=== PATIENT | male | born 1990 | race Caucasian/White ===

== ENCOUNTER 2018-10-09 15:37 | Emergency (ER) | payer OTHER ==
[~2018-10-09] VITALS: Ht 167.6 cm; Wt 129.0 kg
[2018-10-09 15:41] VITALS: Ht 167.6 cm; Wt 129.0 kg
[2018-10-09] MEDS ORDERED: CEPH-443 PO (18:45)
[2018-10-09 18:57] VITALS: BP 139/80; PULSE 79; RESP 16
--- NOTE | 2018-10-09 20:29 | ERD ---
ER Documentation Chief Complaint Chief Complaint Complains of dizziness x 2 days HPI History of Present Illness: Patient coming in today with complaint of 3 episodes of weakness that started today. Patient does not describe symptoms of dizziness, no room spinning, does not like he is spinning. Patient report reports a sensation of dizziness feeling weak and going to follow over. Patient reports having it with episode at work while standing and talking to a fellow coworker in which he became weak. Patient also reports one episode while driving today. Patient also reports one episode when going from laying down to standing up. Patient denies any other associated symptoms. Denies any diaphoresis palpitations, shortness of breath, chest pain during these episodes. At home pharmacological/nonpharmacological treatment for symptoms: Denies Denies social concerns; Denies recent foreign travel ROS All systems reviewed and are negative except as per history of present illness. Medications Home Meds Active Scripts Cephalexin* (Keflex*) 500 Mg Capsule, 500 MG PO QID for urine infection for 7 Days, CAP Prov:SOCRATES DURAND V SERVICE DISPATCHER 10/09/18 Allergies Allergies: Coded Allergies: No Known Drug Allergy (Verified Allergy, Mild, 06/04/16) PMhx/Soc History of Surgery: No Anesthesia Reaction: No Hx Neurological Disorder: No Hx Respiratory Disorders: No Hx Cardiac Disorders: No Hx Psychiatric Problems: No Hx Miscellaneous Medical Probl: No Hx Alcohol Use: Yes Hx Substance Use: No Hx Tobacco Use: No Smoking Status: Never smoker FmHx Family History: No diabetes Physical Exam Vitals Vital Signs Date Temp Pulse Resp B/P (MAP) Pulse Ox O2 O2 Flow FiO2 Time Delivery Rate 10/09/18 79 16 139/80 99 Room Air 18:57 (99) 10/09/18 98.2 97 20 168/99 97 15:41 (122) Physical Exam Const: No acute distress Head: Atraumatic Eyes: Normal Conjunctiva ENT: Normal External Ears, Nose and Mouth. Neck: Full range of motion. No meningismus. Resp: Clear to auscultation bilaterally Cardio: Regular rate and rhythm, no murmurs Abd: Soft, non tender, non distended. Normal bowel sounds Skin: No petechiae or rashes Back: No midline or flank tenderness Ext: No cyanosis, or edema Neur: Awake and alert Psych: Normal Mood and Affect Result Diagram: 10/09/18 1645 10/09/18 1644 Results 24 hrs Laboratory Tests Test 10/09/18 16:44 10/09/18 16:45 Sodium Level 139 mmol/L Potassium Level 4.1 mmol/L Chloride Level 106 mmol/L Carbon Dioxide Level 24 mmol/L Anion Gap 9 Blood Urea Nitrogen 11 mg/dl Creatinine 0.62 mg/dl Est Glomerular Filtrat Rate mL/min > 60 mL/min Glucose Level 112 mg/dl Calcium Level 9.8 mg/dl Total Bilirubin 0.4 mg/dl Direct Bilirubin 0.00 mg/dl Indirect Bilirubin 0.4 mg/dl Aspartate Amino Transf (AST/SGOT) 44 IU/L Alanine Aminotransferase (ALT/SGPT) 74 IU/L Alkaline Phosphatase 156 IU/L Troponin I < 0.012 ng/ml Total Protein 7.6 g/dl Albumin 3.9 g/dl Globulin 3.70 g/dl Albumin/Globulin Ratio 1.05 White Blood Count 13.7 10^3/ul Red Blood Count 4.98 10^6/ul Hemoglobin 14.6 g/dl Hematocrit 45.5 % Mean Corpuscular Volume 91.4 fl Mean Corpuscular Hemoglobin 29.3 pg Mean Corpuscular Hemoglobin Concent 32.1 g/dl Red Cell Distribution Width 13.2 % Platelet Count 312 10^3/UL Mean Platelet Volume 10.3 fl Immature Granulocytes % 0.800 % Neutrophils % 69.2 % Lymphocytes % 20.2 % Monocytes % 6.9 % Eosinophils % 2.6 % Basophils % 0.3 % Nucleated Red Blood Cells % 0.0 /100WBC Immature Granulocytes # 0.110 10^3/ul Neutrophils # 9.5 10^3/ul Lymphocytes # 2.8 10^3/ul Monocytes # 0.9 10^3/ul Eosinophils # 0.4 10^3/ul Basophils # 0.0 10^3/ul Nucleated Red Blood Cells # 0.0 10^3/ul Urine Color STRAW Urine Clarity CLEAR Urine pH 6.0 Urine Specific Butler 1.006 Urine Ketones NEGATIVE mg/dL Urine Nitrite NEGATIVE mg/dL Urine Bilirubin NEGATIVE mg/dL Urine Urobilinogen NEGATIVE mg/dL Urine Leukocyte Esterase 2+ Hema/ul Urine Microscopic RBC 1 /HPF Urine Microscopic WBC 39 /HPF Urine Hemoglobin NEGATIVE mg/dL Urine Glucose NEGATIVE mg/dL Urine Total Protein NEGATIVE mg/dl Urine Opiates Screen Negative Urine Barbiturates Negative Urine Amphetamines Screen Negative Urine Benzodiazepines Screen Negative Urine Cocaine Screen Negative Urine Cannabinoids Negative Procedures/MDM ED course includes a thorough examination and history. Medications: --- Imaging: Chest x-ray, EKG Labs: CBC, CMP, UA, UDS Low suspicion for life-threatening medical emergency. Low suspicion for neurological emergency, unremarkable. Low suspicion for cardiopulmonary emergency that requires hospitalization or immediate surgical intervention, patient without palpitations or chest pain or shortness of breath. EKG @ 1638: Rate/Rhythm: Normal Sinus Rhythm, ventricular rate 72 QRS, ST, T-waves: No changes consistent w/ acute ischemia Impression: No evidence of ischemia or arrhythmia Otherwise healthy patient presenting with constellation of symptoms likely representing uncomplicated urinary tract infection, as characterized by history, physical exam findings, radiologic findings, lab findings. Patient reports being uncircumcised, but with no complaints of urinary symptoms. Denies any new sexual partners, will order gonorrhea chlamydia to rule out. CBC showing slight leukocytosis at 13.7, no signs of anemia or low fluid volume. CMP without Y abnormality, liver enzymes and alkaline phosphatase mildly elevated. Urinalysis showing increase in white blood cells and positive leukocyte esterase. Urine drug screen negative. No respiratory distress, otherwise relatively well appearing and nontoxic. No episodes of weakness spells during ER visit. Patient reports increased with alcohol use rings every weekend and several times during the week with at least 3+ drinks. Patient education provided for alcohol abuse and mild elevation of alkaline phosphatase and liver enzymes. Patient educated on diagnoses, p rescriptions, follow-up care, return precautions. Strict return precautions given for worsening condition; questions answered discharge. Disposition for discharge with followup in 2 days with PCP/clinic. Blood Pressure Assessment: Patient's blood pressure was elevated (>120/80) but appears stable without evidence of hypertension emergency or urgency. The patient was counseled about the risks of hypertension and urged to pursue outpatient monitoring and therapy within a week with their primary care physician. Departure Diagnosis: Primary Impression: Weakness Additional Impressions: UTI (urinary tract infection) Urinary tract infection type: site unspecified Hematuria presence: without hematuria Qualified Codes: N39.0 - Urinary tract infection, site not specified Elevated serum alkaline phosphatase level Condition: Stable Patient Instructions: Understanding Urinary Tract Infections (UTIs), Generalized Weakness, Weakness, Unk Cause, Alcohol Abuse Referrals: COMMUNITY CLINICS YOU HAVE RECEIVED A MEDICAL SCREENING EXAM AND THE RESULTS INDICATE THAT YOU DO NOT HAVE A CONDITION THAT REQUIRES URGENT TREATMENT IN THE EMERGENCY DEPARTMENT. FURTHER EVALUATION AND TREATMENT OF YOUR CONDITION CAN WAIT UNTIL YOU ARE SEEN IN YOUR DOCTORS OFFICE WITHIN THE NEXT 1-2 DAYS. IT IS YOUR RESPONSIBILITY TO MAKE AN APPOINTMENT FOR FOLOW-UP CARE. IF YOU HAVE A PRIMARY DOCTOR --you should call your primary doctor and schedule an appointment IF YOU DO NOT HAVE A PRIMARY DOCTOR YOU CAN CALL OUR PHYSICIAN REFERRAL HOTLINE AT IF YOU CAN NOT AFFORD TO SEE A PHYSICIAN YOU CAN CHOSE FROM THE FOLLOWING FORMERLY [facility], [facility] CL[facility] [address] [facility] [address] [facility] [address] [facility] [address] [address] [address] [facility] [address] [facility]. [facility]. [address] [facility]. [facility] YOU HAVE RECEIVED A MEDICAL SCREENING EXAM AND THE RESULTS INDICATE THAT YOU DO NOT HAVE A CONDITION THAT REQUIRES URGENT TREATMENT IN THE EMERGENCY DEPARTMENT. FURTHER EVALUATION AND TREATMENT OF YOUR CONDITION CAN WAIT UNTIL YOU ARE SEEN IN YOUR DOCTORS OFFICE WITHIN THE NEXT 1-2 DAYS. IT IS YOUR RESPONSIBILITY TO MAKE AN APPOINTMENT FOR FOLOW-UP CARE. IF YOU HAVE A PRIMARY DOCTOR --you should call your primary doctor and schedule and appointment IF YOU DO NOT HAVE A PRIMARY DOCTOR YOU CAN CALL OUR PHYSICIAN REFERRAL HOTLINE AT . IF YOU CAN NOT AFFORD TO SEE A PHYSICIAN YOU CAN CHOSE FROM THE FOLLOWING [facility] INSTITUTIONS: [facility] [address] [place] [address] [facility] [address] [place] [address] [facility] [address] [place] [address] Additional Instructions: Thank you very much for allowing us to participate in your care. Your health and safety is our top priority at [facility]. It is important to read all discharge instructions and education provided in your discharge packet. Call your primary care doctor TOMORROW for an appointment during the next 2-4 days and bring all the information and medications prescribed. Have prescriptions filled and follow precisely the directions on the label. Cephalexin is antibiotic for urinary tract infection; you may take this m edication for 7 days. No consumption of alcohol while taking antibiotics. If the symptoms get worse and your provider is unavailable, return to the Emergency Department immediately. SOCRATES DURAND NP Oct 09, 2018 20:29
== END 2018-10-09 18:58 | disposition home or self-care (01) ==
LOC: FTE 15:37
DX: R53.1 Weakness (principal); N39.0 Urinary tract infection, site not specified; R74.8 Abnormal levels of other serum enzymes
CPT/HCPCS: 36415; 71046; 80053; 80307; 81001; 84484; 85025; 87591; 93005; Z7502

== ENCOUNTER 2019-05-01 18:58 | Emergency (ER) | payer OTHER ==
[~2019-05-01] VITALS: Ht 180.3 cm; Wt 135.2 kg
[~2019-05-01 18:58] MED LIST: ACET-141 PO; BEN50 PO; CEPH-443 PO; IBUP-1561 PO; IBUP800T48 PO
[2019-05-01 19:00] VITALS: Ht 180.3 cm; Wt 135.2 kg
[2019-05-01] MEDS ORDERED: DIPHENHYDRAMINE 50 MG CAP PO ONE (21:00)
[2019-05-01 21:47] VITALS: BP 145/90; PULSE 75; RESP 14
== END 2019-05-01 21:49 | disposition home or self-care (01) ==
LOC: FTE 18:58
DX: R21 Rash and other nonspecific skin eruption (principal); R42 Dizziness and giddiness; I10 Essential (primary) hypertension; F17.210 Nicotine dependence, cigarettes, uncomplicated
CPT/HCPCS: 36415; 80053; 85025; Z7502; Z7610; 99283